=== PATIENT | female | born 1940 | race Caucasian/White ===

== ENCOUNTER 2020-11-01 11:34 | Emergency (ER) | payer MEDICARE, BC ==
[2020-11-01] MEDS ORDERED: Ciprofloxacin 250 MG Tab ONE (11:35)
[2020-11-01 12:00] VITALS: BP 140/86; PULSE 100
--- NOTE | 2020-11-01 19:19 | ER ---
REASON FOR EMERGENCY ROOM VISIT: Probable UTI. HISTORY: This 79-year-old woman has a history of recurrent urinary tract infections in the past. Over the past couple of days, she has developed some lower abdominal cramping that has radiated around to the lower back area along with some increased urinary frequency and urgency. These are all typical symptoms for her when she has had UTIs in the past. While she was home, she used an tval-kma-autdvoo product called AZO, which is a dipstick that will indicate possibility in the presence of UTI. She used one of these and it indicated positive for UTI. She has not had any fever or chills and she denies any GI symptoms. PAST MEDICAL HISTORY: 1. History of pulmonary embolus for which she is on Xarelto. 2. History of congestive heart failure. 3. Hypertension. MEDICATIONS: See EMR. These were reviewed. ALLERGIES: NONE TO MEDICATIONS. REVIEW OF SYSTEMS: Pertinent positives and negatives as noted in the HPI. PHYSICAL EXAMINATION: GENERAL: She is a pleasant woman in no acute distress. She is afebrile. ABDOMEN: Soft and nontender with no guarding or rebound. No palpable masses. She has no CVA tenderness. LABORATORY: UA shows a lot of white blood cells in clumps and bacteria. IMPRESSION: Lower urinary tract infection. PLAN: Ciprofloxacin 250 mg p.o. b.i.d. x5 days. I did discuss severe side effects of Cipro including spontaneous tendon rupture, etc. I offered an alternative of Bactrim and described why I prefer using this over ciprofloxacin. She prefers Cipro and I therefore prescribed this for her. Should she have worsening of her symptoms or any problems, questions, or concerns, she should certainly feel free to get back to us. All questions were answered. She understands and agrees with this plan. BLANCA /[id number]
== END 2020-11-01 12:44 | disposition home or self-care (01) ==
LOC: LB.ED 11:34
DX: N39.0 Urinary tract infection, site not specified (principal); I11.0 Hypertensive heart disease with heart failure; I50.9 Heart failure, unspecified; Z86.711 Personal history of pulmonary embolism; Z79.01 Long term (current) use of anticoagulants
CPT/HCPCS: 81001; 99284; A9270